=== PATIENT | male | born 1960 | race Caucasian/White ===

== ENCOUNTER 2025-09-22 18:41 | Emergency (ER) | payer OTHER ==
[~2025-09-22] VITALS: Ht 170.2 cm; Wt 72.6 kg
[2025-09-22 18:54] VITALS: BP 149/92; TEMP 98.6
[2025-09-22] MEDS ORDERED: CEPH-570 PO (19:15)
[2025-09-22 19:22] VITALS: O2SAT 99
== END 2025-09-22 19:22 | disposition home or self-care (01) ==
LOC: ER 18:46
DX: N64.59 Other signs and symptoms in breast (principal); M10.9 Gout, unspecified; I10 Essential (primary) hypertension